=== PATIENT | female | born 1970 | race Caucasian/White ===

== ENCOUNTER 2017-09-24 05:22 | Emergency (ER) | payer BC ==
[~2017-09-24] VITALS: Ht 162.6 cm; Wt 83.2 kg
[~2017-09-24 05:22] MED LIST: CHOL100027 PO; CIPR-255 PO; IBUP-103 PO; LEVO75TA PO; METH1INJ89 SC; NRN/300 PO; SERT1TAB71 PO; fiber gummies PO; metanx PO
[2017-09-24 05:26] VITALS: TEMP 36.5; Ht 162.6 cm; Wt 83.2 kg
[2017-09-24] MEDS ORDERED: KETOROLAC TROMETHAMINE 30 MG/ML VIAL IV STA (05:34)
[2017-09-24] MEDS ORDERED: ONDANSETRON INJ 2 MG/ML 2 ML VIAL IV STA (05:34)
[2017-09-24] MEDS ORDERED: MoRPHine SULFATE 4 MG/ML 1 ML CARP\\VIAL IV PRN (05:45)
[2017-09-24] MEDS ORDERED: SODIUM CHLORIDE 0.9% 1000ML 1,000 ML IV ONE (05:45)
[2017-09-24 06:26] LABS: BASO % 0.1 %; BASO ABS # 0.01 K/uL (0-0.2); EOS % 0.9 %; EOS ABS # 0.07 K/uL (0-0.5); HEMATOCRIT 43.3 % (37-47); IG# 0.02 K/uL (0.00-0.02); LYMPH % 27.1 %; LYMPH ABS # 2.13 K/uL (1.2-3.4); MEAN CELL VOLUME 89.6 fL (80-100); MEAN CORPUSCULAR HEMOGLOBIN 31.1 pg (25-34); MEAN CORPUSCULAR HGB CONC 34.6 g/dl (32-36); MEAN PLATELET VOLUME 11.2 fL (7.4-10.4); MONO % 7.4 %; MONO ABS # 0.58 K/uL (0.11-0.59); NEUT % 64.2 %; NEUT ABS # 5.04 K/uL (1.4-6.5); PLATELET COUNT 257 K/uL (130-400); RED CELL DISTRIBUTION WIDTH CV 13.6 % (11.5-14.5); RED CELL DISTRIBUTION WIDTH SD 44.9 fL (36.4-46.3); WHITE BLOOD COUNT 7.85 K/uL (4.8-10.8)
[2017-09-24 06:35] LABS: ALBUMIN 4.2 gm/dl (3.4-5.0); CREATININE 1.02 mg/dl (0.60-1.20); POTASSIUM 3.1 mmol/L (3.5-5.1); TOTAL PROTEIN 8.5 gm/dl (6.4-8.2)
[2017-09-24] MEDS ORDERED: ONDA4TAB10 SL (07:39)
[2017-09-24] MEDS ORDERED: OXYC-737 PO (07:39)
[2017-09-24] MEDS ORDERED: TAMS0.4C38 PO (07:39)
[2017-09-24] MEDS ORDERED: ONDANSETRON HOME PACK 4MG OD TAB PO ONE (07:45)
[2017-09-24] MEDS ORDERED: OXYCODONE IR HOME PACK PO ONE (07:45)
[2017-09-24 08:04] VITALS: BP 140/87; PULSE 76; O2SAT 99
--- NOTE | 2017-09-24 08:13 | DIAGNOSTIC IMAGING REPORT ---
ABD/PELVIS NO IV OR ORAL CONT CLINICAL HISTORY: 47 years-old Female presenting with left flank pain. hx of stones. TECHNIQUE: Multidetector CT of the abdomen and pelvis was performed without the use of intravenous contrast. IV contrast: None. A dose lowering technique was used consistent with the principles of ALARA (as low as reasonably achievable). COMPARISON: None. CT DOSE (mGy.cm): The estimated cumulative dose is 446.31 mGy.cm. FINDINGS: [employer] Room Attendant topogram: Cholecystectomy clips. Lung bases: Lungs and pleural spaces clear. Normal heart size. No pericardial or pleural effusion. Liver: Normal morphology. Normal density. Biliary: Mild biliary ductal prominence likely a reservoir effect in the post cholecystectomy state. Gallbladder surgically absent. Pancreas: Normal noncontrast appearance. Spleen: Normal noncontrast appearance. Adrenal glands: Normal noncontrast appearance. Kidneys and ureters: Right kidney normal. Right ureter normal. Left kidney demonstrates a punctate nonobstructing renal calculus at the upper pole. Mild left pelvocaliectasis. Mild left hydroureter with an obstructing 2 mm calculus in the distal left ureter (series 3 image [id number]). Bladder: Incompletely evaluated secondary to underdistention. No bladder calculi. Pelvic organs: Uterus surgically absent. No adnexal masses. Bowel: Postsurgical changes of appendectomy. No bowel obstruction. Allowing for noncontrast technique, no bowel wall thickening or perienteric or pericolonic inflammatory change. Peritoneal cavity: No free fluid or intraperitoneal gas. Lymph nodes: No gross lymphadenopathy allowing for noncontrast technique. Vasculature: Normal noncontrast appearance. Abdominal wall: Normal. Musculoskeletal: Normal. IMPRESSION: 1. Mild left hydroureteronephrosis due to an obstructing 2 mm calculus at the distal left ureter. Additional punctate left renal calculus is nonobstructing. No right renal calculi. Electronically signed by: Mc Sanchez M.D. 09/24/2017 8:12 AM Dictated Date/Time: 09/24/2017 7:29 AM
--- NOTE | 2017-09-25 04:20 | EMERGENCY ROOM VISIT NOTE ---
History First contact with patient: 05:29 Chief Complaint: KIDNEY STONE Stated Complaint: POSSIBLE KIDNEY STONE ON LEFT History of Present Illness The patient is a 47 year old female who presents to the Emergency Room with complaints of acute onset left flank pain that began within the past 2 hours. The patient does have a history of kidney stones in the past, and states this feels identical to previous episodes. The patient is in the [place] area as she and her were driving to the airport to get on an airplane for vacation in [facility]. She was initially okay with the pain, but now she has had several episodes of vomiting, and she does not feel well enough to get on the airplane because of this. The patient has not had fever or chills. She feels like she needs to use the bathroom, but is not urinating with large volume. The patient has had multiple abdominal surgeries in the past, but is otherwise healthy. She denies chance of . Her pain is a constant 7/ 10 with episodic worsening. Food and position do not seem to change her symptoms. Review of Systems More than 10 systems were reviewed and otherwise negative with the exception of history of present illness. Past Medical/Surgical History History of ureteral calculi Family History No pertinent family history Social History Smoking Status: Never Smoker Marital Status: Housing Status: lives with family Occupation Status: employed Current/Historical Medications Scheduled Cholecalciferol (Vitamin D 1000 Unit), 5,000 INTER.UNIT PO DAILY Ciprofloxacin Hcl (Cipro), 500 MG PO BID Gabapentin (Neurontin), 300 MG PO HS Ibuprofen Tab (Advil), 600 MG PO Q6-8HR PRN Levothyroxine Sodium (Synthroid), 75 MCG PO DAILY Methotrexate (Methotrexate), 0.6 ML SC WK Ondasetron Odt (Zofran Odt), 4 MG SL Q6H Oxycodone Immediate Rel Tab (Roxicodone Ir), 1-2 TAB PO Q4H Sertraline Hcl (Zoloft), 50 MG PO DAILY Tamsulosin Hcl (Flomax), 0.4 MG PO DAILY [fiber gummies], 1 TAB PO DAILY [metanx], 1 TAB PO DAILY Physical Exam Vital Signs Date Time Temp Pulse Resp B/P (MAP) Pulse Ox O2 Delivery O2 Flow Rate FiO2 09/24/17 08:04 76 20 140/87 99 09/24/17 06:53 76 20 135/78 100 Room Air 09/24/17 06:26 60 14 100 Room Air 09/24/17 06:03 70 16 100 Room Air 09/24/17 05:26 36.5 74 18 153/91 99 Room Air Physical Exam VITALS: Vitals are noted on the nurse's note and reviewed by myself. Vital signs stable. GENERAL: Well-developed, well-nourished, white female who appears in moderate discomfort secondary to her stated complaint. HEART: Regular rate and rhythm without murmurs gallops or rubs. LUNGS: Clear to auscultation bilaterally without wheezes, rales or rhonchi. No retractions or accessory muscle use. ABDOMEN: Positive normal bowel sounds x 4. Soft, nontender, without masses or organomegaly. No guarding or rebound tenderness. No CVA tenderness. MUSCULOSKELETAL: No muscle atrophy, erythema, or edema noted. Full range of motion in all extremities. NEURO: Patient was alert and oriented to person place and time. CN II through XII grossly intact. Medical Decision & Procedures ER Provider Diagnostic Interpretation: ABD/PELVIS NO IV OR ORAL CONT CLINICAL HISTORY: 47 years-old Female presenting with left flank pain. hx of stones. TECHNIQUE: Multidetector CT of the abdomen and pelvis was performed without the use of intravenous contrast. IV contrast: None. A dose lowering technique was used consistent with the principles of ALARA (as low as reasonably achievable). COMPARISON: None. CT DOSE (mGy.cm): The estimated cumulative dose is 446.31 mGy.cm. FINDINGS: [employer] Operator topogram: Cholecystectomy clips. Lung bases: Lungs and pleural spaces clear. Normal heart size. No pericardial or pleural effusion. Liver: Normal morphology. Normal density. Biliary: Mild biliary ductal prominence likely a reservoir effect in the post cholecystectomy state. Gallbladder surgically absent. Pancreas: Normal noncontrast appearance. Spleen: Normal noncontrast appearance. Adrenal glands: Normal noncontrast appearance. Kidneys and ureters: Right kidney normal. Right ureter normal. Left kidney demonstrates a punctate nonobstructing renal calculus at the upper pole. Mild left pelvocaliectasis. Mild left hydroureter with an obstructing 2 mm calculus in the distal left ureter (series 3 image 362). Bladder: Incompletely evaluated secondary to underdistention. No bladder calculi. Pelvic organs: Uterus surgically absent. No adnexal masses. Bowel: Postsurgical changes of appendectomy. No bowel obstruction. Allowing for noncontrast technique, no bowel wall thickening or perienteric or pericolonic inflammatory change. Peritoneal cavity: No free fluid or intraperitoneal gas. Lymph nodes: No gross lymphadenopathy allowing for noncontrast technique. Vasculature: Normal noncontrast appearance. Abdominal wall: Normal. Musculoskeletal: Normal. IMPRESSION: 1. Mild left hydroureteronephrosis due to an obstructing 2 mm calculus at the distal left ureter. Additional punctate left renal calculus is nonobstructing. No right renal calculi. Laboratory Results 09/24/17 06:14 Red Blood Count 4.83, Mean Corpuscular Volume 89.6, Mean Corpuscular Hemoglobin 31.1, Mean Corpuscular Hemoglobin Concent 34.6, Mean Platelet Volume 11.2, Neutrophils (%) (Auto) 64.2, Lymphocytes (%) (Auto) 27.1, Monocytes (%) (Auto) 7.4, Eosinophils (%) (Auto) 0.9, Basophils (%) (Auto) 0.1, Neutrophils # (Auto) 5.04, Lymphocytes # (Auto) 2.13, Monocytes # (Auto) 0.58, Eosinophils # (Auto) 0.07, Basophils # (Auto) 0.01 09/24/17 06:13 Test 09/24/17 05:30 09/24/17 06:13 09/24/17 06:14 Urine Color ASHLEY Urine Appearance TURBID (CLEAR) Urine pH 5.0 (4.5-7.5) Urine Specific [place] 1.026 (1.000-1.030) Urine Protein 2+ (NEG) Urine Glucose (UA) NEG (NEG) Urine Ketones NEG (NEG) Urine Occult Blood 3+ (NEG) Urine Nitrite NEG (NEG) Urine Bilirubin NEG (NEG) Urine Urobilinogen NEG (NEG) Urine Leukocyte Esterase MODERATE (NEG) Urine WBC (Auto) 10-30 /hpf (0-5) Urine RBC (Auto) >30 /hpf (0-4) Urine Hyaline Casts (Auto) 0 /lpf (0-5) Urine Epithelial Cells (Auto) >30 /lpf (0-5) Urine Bacteria (Auto) NEG (NEG) Urine Crystals CALCIUM OXALATE (NONE Urine Pathogenic Casts /lpf (0) Anion Gap 8.0 mmol/L (3-11) Est Creatinine Clear Calc Drug Dose 72.7 ml/min Estimated GFR () 76.9 Estimated GFR (Non- 66.4 BUN/Creatinine Ratio 16.9 (10-20) Calcium Level 9.0 mg/dl (8.5-10.1) Total Bilirubin 0.4 mg/dl (0.2-1) Aspartate Amino Transf (AST/SGOT) 23 U/L (15-37) Alanine Aminotransferase (ALT/SGPT) 29 U/L (12-78) Alkaline Phosphatase 124 U/L (45-117) Total Protein 8.5 gm/dl (6.4-8.2) Albumin 4.2 gm/dl (3.4-5.0) Globulin 4.3 gm/dl (2.5-4.0) Albumin/Globulin Ratio 1.0 (0.9-2) Lipase 285 U/L (73-393) White Blood Count 7.85 K/uL (4.8-10.8) Red Blood Count 4.83 M/uL (4.2-5.4) Hemoglobin 15.0 g/dL (12.0-16.0) Hematocrit 43.3 % (37-47) Mean Corpuscular Volume 89.6 fL (80-100) Mean Corpuscular Hemoglobin 31.1 pg (25-34) Mean Corpuscular Hemoglobin Concent 34.6 g/dl (32-36) Platelet Count 257 K/uL (130-400) Mean Platelet Volume 11.2 fL (7.4-10.4) Neutrophils (%) (Auto) 64.2 % Lymphocytes (%) (Auto) 27.1 % Monocytes (%) (Auto) 7.4 % Eosinophils (%) (Auto) 0.9 % Basophils (%) (Auto) 0.1 % Neutrophils # (Auto) 5.04 K/uL (1.4-6.5) Lymphocytes # (Auto) 2.13 K/uL (1.2-3.4) Monocytes # (Auto) 0.58 K/uL (0.11-0.59) Eosinophils # (Auto) 0.07 K/uL (0-0.5) Basophils # (Auto) 0.01 K/uL (0-0.2) RDW Standard Deviation 44.9 fL (36.4-46.3) RDW Coefficient of Variation 13.6 % (11.5-14.5) Immature Granulocyte % (Auto) 0.3 % Immature Granulocyte # (Auto) 0.02 K/uL (0.00-0.02) Nucleated RBC Absolute Count (auto) 0.00 K/uL (0-0) Nucleated Red Blood Cells % 0.0 % Medications Administered Medications (Trade) Dose Ordered Sig/Lashae Route Start Time Stop Time Status Last Admin Dose Admin Sodium Chloride 1,000 ml @ 999 mls/hr Q1H1M ONCE IV 09/24/17 05:45 09/24/17 06:45 DC 09/24/17 05:48 999 MLS/HR Morphine Sulfate (MoRPHine SULFATE INJ) 4 mg Q30M PRN IV 09/24/17 05:45 09/24/17 09:06 DC 09/24/17 05:47 4 MG Ketorolac Tromethamine (Toradol Inj) 30 mg NOW STAT IV 09/24/17 05:34 09/24/17 05:39 DC 09/24/17 05:47 30 MG Ondansetron HCl (Zofran Inj) 4 mg NOW STAT IV 09/24/17 05:34 09/24/17 05:39 DC 09/24/17 05:47 4 MG ED Course Physical exam and history were performed. Nursing notes, EMR, and Medication List were personally reviewed. Patient appears to have left flank pain bringing her to the emergency department today. The patient does have a history of kidney stones and appears quite uncomfortable on initial presentation. IV access was established and labs are obtained. The patient was hydrated and medicated as above. Because of her pain and symptoms I did elect to perform a CT scan. The patient's blood work is as above and was reviewed. She does not have a significantly elevated white blood cell count, gross anemia, bandemia, or significant electrolyte imbalance. Lipase and transaminases are not diagnostic. Urinalysis is without obvious infection. The patient CT scan is as above and suggests a 2 mm distal ureteral calculi. Clinically this does correlate with the patient's discomfort. The patient was reevaluated multiple times throughout the course of her stay. She felt significantly improved after pain medication. I discussed options of care, and overall the patient is comfortable with discharge. I will provide her information for local urology. I will also give her a short course of oxycodone, Flomax, and Zofran. The patient was educated on conservative care measures and otherwise invited back to the ER with any new, worsening, or concerning symptoms. The chart was completed utilizing [employer] Speech Voice Recognition Software. Grammatical errors, random word insertions, pronoun errors, and incomplete sentences are an occasional consequence of this system due to software limitations, ambient noise, and hardware issues. Any formal questions or concerns about the content, text, or information contained within the body of this dictation should be directly addressed to the provider for clarification. . Medical Decision Differential diagnosis: Etiologies such as renal colic, appendicitis, diverticulitis, mesenteric ischemia, aortic pathology, infections, inflammatory bowel disease, PUD, biliary pathology, UTI, as well as others were entertained. Impression Primary Impression: Left ureteral calculus Departure Information Dispostion Home / Self-Care Condition GOOD Prescriptions Tamsulosin Hcl (FLOMAX) 0.4 Mg Cap 0.4 MG PO DAILY for 7 Days, #7 CAP Prov: Carl Casillas PA-C 09/24/17 Ondasetron Odt (ZOFRAN ODT) 4 Mg Tab 4 MG SL Q6H for Nausea, #12 TAB Prov: Carl Casillas PA-C 09/24/17 Oxycodone Immediate Rel Tab (ROXICODONE IR) 5 Mg Tab 1-2 TAB PO Q4H, #24 TAB Initial treatment Prov: Carl Casillas PA-C 09/24/17 Referrals Maday Amos MD Forms HOME CARE DOCUMENTATION FORM, IMPORTANT VISIT INFORMATION Patient Instructions My [facility] Additional Instructions You were seen and evaluated today on an emergency basis only. This is not a substitute for, or an effort to provide, complete comprehensive medical care. It is not possible to recognize and treat all injuries or illnesses in a single emergency department visit. For this reason it is recommended that you followup with urology, Dr. Amos office, with any ongoing or persisting symptoms. For baseline pain relief you may alternate ibuprofen and acetaminophen every 4 hours for pain control. Take 600 mg ibuprofen (Advil) and then 4 hours later take 1000 mg acetaminophen (Tylenol). Do not take more than 3000 mg acetaminophen in a single day. Oxycodone (OxyIR) 5mg: Take ONE or TWO pills by mouth every FOUR to SIX hours for breakthrough pain. Avoid alcohol, operating machinery or dangerous equipment, working on ladders or roofs, DRIVING, or situations where being under the influence may be dangerous. It is recommended to use an over-the- counter stool softener such as Colace, 100mg twice daily while taking this medication to avoid constipation. Zofran 4 mg ODT: Dissolve 1 tablet every 6 hrs as needed for nausea. Take Flomax once daily You are welcome to return to the emergency department anytime with new, worsening, or concerning symptoms.
== END 2017-09-24 08:05 | disposition home or self-care (01) ==
LOC: C.EDB 05:23 → C.EDA 08:05
DX: N20.1 Calculus of ureter (principal); Z79.899 Other long term (current) drug therapy